=== PATIENT | female | born 1945 | race Caucasian/White ===

== ENCOUNTER 2020-02-04 12:17 | Emergency (ER) | payer MEDICARE, OTHER ==
[2020-02-04 12:26] VITALS: BP 205/82; PULSE 71
--- NOTE | 2020-02-04 12:59 | EDM.PDOC ---
ED HPI GENERAL MEDICAL PROBLEM - General Chief Complaint: General Stated Complaint: COVID SYMPTOMS Time Seen by Provider: 02/04/20 12:49 Source of Information: Reports: Patient, RN Notes Reviewed History Limitations: Reports: No Limitations - History of Present Illness INITIAL COMMENTS - FREE TEXT/NARRATIVE: 75-year-old female presents emergency department today requesting to be screened for COVID has some symptoms of some nasal irritation with allergic rhinitis of which she takes Flonase but no fevers no shortness of breath no chest pain no nausea vomiting no diarrhea - Related Data Allergies Allergy/AdvReac Type Severity Reaction Status Date / Time codeine Allergy Severe Shortness Verified 04/18/16 09:46 of Breath hydrocodone Allergy Cannot Verified 04/18/16 01:13 Remember lisinopril Allergy Cannot Verified 04/17/16 05:43 Remember niacin Allergy Cannot Verified 04/17/16 05:43 Remember Inwwses-Ual-Qnd Reductase Allergy Cannot Verified 04/17/16 05:43 Inhibitor Remember strawberry Allergy Shortness Verified 06/27/18 20:52 of Breath sulfamethoxazole Allergy Cannot Verified 04/17/16 05:43 [From Bactrim] Remember trimethoprim [From Bactrim] Allergy Cannot Verified 04/17/16 05:43 Remember venom-honey bee Allergy Cannot Verified 04/17/16 05:43 [bee venom (honey bee)] Remember diphenhydramine HCl AdvReac Nausea and Verified 04/17/16 05:43 [From Benadryl] Vomiting fluvastatin sodium AdvReac Muscle Verified 04/17/16 05:43 [From Lescol] Aches Penicillins AdvReac Nausea Verified 04/17/16 05:43 tramadol AdvReac Nausea Verified 04/17/16 05:43 Home Meds: Home Meds Acetaminophen [Tylenol] 650 mg PO Q6H 12/29/13 [History] Albuterol Sulfate [Proair Hfa] 2 inh INH Q4H PRN 12/29/13 [History] Albuterol [Proventil Neb Soln] 0.5 ml NEB Q6HR PRN 12/29/13 [History] Aspirin [Adult Low Dose Aspirin EC] 81 mg PO DAILY 12/29/13 [History] Levothyroxine [Synthroid] 100 mcg PO DAILY 12/29/13 [History] Vnlxd-5-Janw Ethyl Esters [Lovaza] 2 gm PO BID 12/29/13 [History] Allopurinol [Zyloprim] 100 mg PO DAILY 04/15/16 [History] Cholecalciferol (Vitamin D3) [Vitamin D3] 1,000 units PO DAILY 04/15/16 [History] Clotrimazole/Betamethasone Dip [Lotrisone Cream] 1 applic TOP BID 04/15/16 [History] Cranberry Fruit Extract [Theracran Hp For Kids] 1 tab PO DAILY 04/15/16 [History] Cyanocobalamin (Vitamin B-12) [Vitamin B-12] 1,000 mcg PO DAILY 04/15/16 [History] Multivitamin with Minerals [Multiple Vitamin] 1 tab PO DAILY 04/15/16 [History] Omeprazole 20 mg PO BIDAC 04/17/16 [History] cycloSPORINE [Restasis] 1 drop EYEBOTH BID 04/17/16 [History] Losartan Potassium 50 mg PO DAILY 06/27/18 [History] Sennosides/Docusate Sodium [Senna-S] 1 each PO BID #60 tablet 06/29/18 [Rx] polyethylene glycoL 3350 [MiraLAX] 17 gm PO BID #60 packet 06/29/18 [Rx] Citalopram Hydrobromide [Celexa] 10 mg PO DAILY 02/04/20 [History] Past Medical History HEENT History: Reports: Cataract, Impaired Vision Other HEENT History: wears glasses Cardiovascular History: Reports: High Cholesterol, Hypertension Respiratory History: Reports: COPD Gastrointestinal History: Reports: Chronic Constipation, GERD, Hemorrhoids Genitourinary History: Reports: Urinary Incontinence 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: Musculoskeletal History: Reports: Fracture Neurological History: Reports: Head Trauma, Vertigo Psychiatric History: Reports: Depression Endocrine/Metabolic History: Reports: Diabetes, Type II, Hyperthyroidism Oncologic (Cancer) History: Reports: Ovarian - Infectious Disease History Infectious Disease History: Reports: Chicken Pox, Measles - Past Surgical History HEENT Surgical History: Reports: Cataract Surgery GI Surgical History: Reports: Colonoscopy, EGD, Hernia, Abdominal Female Surgical History: Reports: Breast Biopsy, D&C, Oophorectomy, Tubal Ligation Social & Family History - Family History Family Medical History: Noncontributory Cardiac: Reports: Aneurysm, Other (See Below) Other Cardiac Family History: unknown to pt. Respiratory: Reports: Asthma, COPD GI: Reports: Colon Polyps OBGYN: Reports: Fibroids Oncologic: Reports: Bladder, Colon, Lung, Uterine, Other (See Below) Other Oncologic Family History: stomach - Tobacco Use Smoking Status *Q: Never Smoker - Caffeine Use Caffeine Use: Reports: Coffee ED ROS GENERAL - Review of Systems Review Of Systems: See Below Constitutional: Reports: No Symptoms HEENT: Reports: Sinus Problem Respiratory: Reports: No Symptoms Cardiovascular: Reports: No Symptoms GI/Abdominal: Reports: No Symptoms ED EXAM, GENERAL - Physical Exam Exam: See Below Exam Limited By: No Limitations General Appearance: Alert, WD/WN, No Apparent Distress Respiratory/Chest: No Respiratory Distress, Lungs Clear, Normal Breath Sounds, No Accessory Muscle Use, Chest Non-Tender Cardiovascular: Regular Rate, Rhythm, No Murmur Course - Vital Signs Last Recorded V/S: Last Vital Signs Temp 97 F 02/04/20 12:25 Pulse 71 02/04/20 12:25 Resp 18 02/04/20 12:25 BP 205/82 H 02/04/20 12:25 Pulse Ox 92 L 02/04/20 12:25 - Orders/Labs/Meds Orders: Active Orders 24 hr Category Date Time Status CORONAVIRUS COVID-19, MARIE Routine Lab 02/04/20 12:55 Ordered Departure - Departure Time of Disposition: 12:58 Disposition: Home, Self-Care 01 Condition: Fair Clinical Impression: Allergic rhinitis - Discharge Information Referrals: PCP,None [Primary Care Provider] - Additional Instructions: Continue with your current medications, please followup with your primary care provider in 3-5 days if not better, please call return to the emergency department with worsening of symptoms., Sepsis Event Note (ED) - Evaluation Sepsis Screening Result: No Definite Risk - Focused Exam Vital Signs: Vital Signs Temp Pulse Resp BP Pulse Ox 02/04/20 12:25 97 F 71 18 205/82 H 92 L 02/04/20 12:24 97 F 71 18 205/82 H 92 L - My Orders Last 24 Hours: My Active Orders 02/04/20 12:55 CORONAVIRUS COVID-19, MARIE Routine - Assessment/Plan Last 24 Hours: My Active Orders 02/04/20 12:55 CORONAVIRUS COVID-19, MARIE Routine Plan: Assessment Acuity = acute Site and laterality = allergic rhinitis Etiology = unknown Manifestations = none Location of injury = Home Lab values = COVID testing pending Plan Continue with current medications follow-up primary care 3 to 5 days if not better This note was dictated using [employer] voice recognition software please call with any questions on syntax or grammar.
== END 2020-02-04 13:18 | disposition home or self-care (01) ==
LOC: JP.ED 12:17
DX: U07.1 COVID-19 (principal); J30.9 Allergic rhinitis, unspecified; E78.00 Pure hypercholesterolemia, unspecified; I10 Essential (primary) hypertension; J44.9 Chronic obstructive pulmonary disease, unspecified; K21.9 Gastro-esophageal reflux disease without esophagitis; F32.9 Major depressive disorder, single episode, unspecified; E11.9 Type 2 diabetes mellitus without complications; Z88.5 Allergy status to narcotic agent; Z88.8 Allergy status to other drugs, medicaments and biological substances; Z88.2 Allergy status to sulfonamides; Z91.018 Allergy to other foods; Z79.82 Long term (current) use of aspirin; Z79.899 Other long term (current) drug therapy
CPT/HCPCS: 99282; 99283; U0002

== ENCOUNTER 2022-06-28 20:10 | Emergency (ER) | payer OTHER, MEDICARE ==
[2022-06-28 20:54] VITALS: BP 165/72; PULSE 69
== END 2022-06-28 21:25 | disposition home or self-care (01) ==
LOC: JP.ED 20:10
DX: S46.911A Strain of unspecified muscle, fascia and tendon at shoulder and upper arm level, right arm, initial encounter (principal); M79.651 Pain in right thigh; M79.652 Pain in left thigh; M25.561 Pain in right knee; M25.562 Pain in left knee; M25.531 Pain in right wrist; I10 Essential (primary) hypertension; J44.9 Chronic obstructive pulmonary disease, unspecified; K21.9 Gastro-esophageal reflux disease without esophagitis; E11.9 Type 2 diabetes mellitus without complications; E05.90 Thyrotoxicosis, unspecified without thyrotoxic crisis or storm; Z88.5 Allergy status to narcotic agent; Z88.8 Allergy status to other drugs, medicaments and biological substances; Z88.1 Allergy status to other antibiotic agents; Z91.018 Allergy to other foods; Z88.2 Allergy status to sulfonamides; Z91.030 Bee allergy status; Z88.0 Allergy status to penicillin; Z79.82 Long term (current) use of aspirin; Z79.899 Other long term (current) drug therapy; V03.90XA Pedestrian on foot injured in collision with car, pick-up truck or van, unspecified whether traffic or nontraffic accident, initial encounter; Y92.410 Unspecified street and highway as the place of occurrence of the external cause
CPT/HCPCS: 73110-26-RT; 73110-RT; 99283

== ENCOUNTER 2024-02-21 11:47 | Emergency (ER) | payer MEDICAID, MEDICARE, OTHER ==
[2024-02-21] MEDS: Ondansetron 4 MG Tab.DIS PO ONE (13:23)
[2024-02-21 13:34] VITALS: BP 170/77; PULSE 77
== END 2024-02-21 16:19 | disposition home or self-care (01) ==
LOC: JP.ED 11:47
DX: M25.552 Pain in left hip (principal); I10 Essential (primary) hypertension; E78.00 Pure hypercholesterolemia, unspecified; J44.9 Chronic obstructive pulmonary disease, unspecified; K21.9 Gastro-esophageal reflux disease without esophagitis; E11.9 Type 2 diabetes mellitus without complications; Z79.82 Long term (current) use of aspirin; Z79.899 Other long term (current) drug therapy; Z88.8 Allergy status to other drugs, medicaments and biological substances; Z88.0 Allergy status to penicillin; Z88.2 Allergy status to sulfonamides; Z91.030 Bee allergy status; Z91.018 Allergy to other foods; Z88.5 Allergy status to narcotic agent; W19.XXXA Unspecified fall, initial encounter
CPT/HCPCS: 73502; 73700; 76377; 99284; Q0162